=== PATIENT | male | born 1960 | race Caucasian/White ===

== ENCOUNTER → 2023-12-03 | Emergency (ER) | payer BC ==
[~2023-12-03] MED LIST: FLEET ENEMA ADULT PR ONE; NA CHLORIDE 0.9% 1,000 ML ONE
[2023-12-03 13:22] LABS: Absolute Lymphocytes (CBC) 1.4 K/uL (0.7-4.9); Hematocrit 45.1 % (39.6-49.0); Lymphocytes % 14.3 % (15.3-44.8); MCV 87.6 fL (80-100); MPV 7.9 fL (7.6-11.3); Platelets 267 thou/uL (152-406); RBC Red Blood Cell Count 5.15 M/uL (4.33-5.43)
[2023-12-03 13:39] LABS: Albumin 3.5 g/dL (3.4-5.0); Bilirubin Total 1.4 mg/dL (0.2-1.0); Potassium 3.9 mEq/L (3.5-5.1); Protein, Total 8.6 g/dL (6.4-8.2)
--- NOTE | 2023-12-03 14:29 | RAD REPORT ---
EXAM DESCRIPTION: CTAbdomen Pelvis W Contrast - 12/03/2023 2:01 pm CLINICAL HISTORY: ABD PAIN COMPARISON: No comparisons TECHNIQUE: CT of the abdomen and pelvis was performed. All CT scans are performed using dose optimization technique as appropriate and may include automated exposure control or mA/KV adjustment according to patient size. FINDINGS: Lower chest: Bilateral pulmonary nodules consistent with metastatic disease. Liver: Several liver lesions identified, the largest in the inferior aspect of right hepatic lobe pattie suring 2.1 cm. Most are consistent with metastatic disease. Biliary: No biliary ductal dilatation. Stomach: No significant focal abnormality. Duodenum: No significant focal abnormality. Pancreas: Pancreatic atrophy. Spleen: Splenic mass measuring 6.2 cm as well as other smaller splenic lesions that are suspicious fo r metastatic disease. Adrenal: Bilateral adrenal masses which are indeterminate but suspicious for metastatic disease. Kidney/ureter: No hydronephrosis. No renal calculi. Indeterminate low-density lesion in the upper gail e the left kidney measuring 2.2 cm. Other too small to characterize renal lesions noted. Retroperitoneum: No retroperitoneal adenopathy. Vascular: No aneurysm. Bowel: Partial colectomy. No bowel obstruction. No appendicitis . Mild to moderate rectal stool. Stoo l burden is otherwise unremarkable. Peritoneum: No ascites or free air. Bowel containing right lateral ventral hernia. Bladder: Grossly unremarkable. Reproductive: No adnexal masses. Bones: Large mixed bony and soft tissue mass associated with the right hemipelvis which involves the pubic bone, ischium, and iliac bone. There is also involvement of the left pubic bone. Remote rib fra ctures. There is a pathologic fracture of the right superior and inferior pubic rami. There is also a fracture of the right acetabulum and right iliac bone that are also presumably pathologic. Probable pathologic fracture at the left superior and inferior pubic rami. No of the fractures are significant ly displaced. Other: n/a IMPRESSION: Metastatic disease including pulmonary nodules, liver lesions, splenic lesions, adrenal masses, and osseous metastatic disease in this patient with reported history of colon cancer. Several pathologic pelvic bone fractures are identified. The acuity is uncertain in the absence of a more re cent priors. No definite acute findings. Incidental/ancillary findings as noted above.
[2023-12-03 14:57] LABS: Specific Gravity > 1.030 (1.005-1.030); Urine Bacteria None Seen /HPF (<20); Urine Bilirubin NEGATIVE (Negative); Urine Blood Negative (Negative); Urine Clarity Clear (Clear); Urine Color Yellow (Yellow); Urine Glucose NEGATIVE (Negative); Urine Mucus Slight /HPF (None Seen); Urine Protein 1+ (Negative); Urine RBC <5 /HPF (None Seen); Urine Urobilinogen 2+ (Normal); Urine pH 5.5 (5.0-7.0)
--- NOTE | 2023-12-03 16:12 | EDPHYS ---
Physician Documentation [facility] Name: Freddy Howe Age: 63 yrs Sex: Male : 1960 Arrival Date: 12/03/2023 Time: 12:53 Bed 19 Private MD: ED Physician Vineet Uriarte HPI: 12/03 16:23 This 63 yrs old Male presents to ER via EMS with complaints of Urinary Retention. kb 16:23 Pt is a 63 year old male with a history of colon cancer with metastasis who presents kb for lower abdominal pain, constipation and urinary retention. Patient states that he takes morphine for pain at home which causes constipation and then the constipation causes urinary retention. States this happened multiple times in the past. Denies fever, nausea, vomiting. Historical: - Allergies: 13:26 No Known Allergies; bp - Home Meds: 13:27 metoprolol succinate oral [Active]; Zofran Oral [Active]; Morphine Oral [Active]; bp - PMHx: 13:26 Hypertensive disorder; bp - PSHx: 13:26 colon surgery; bp - Immunization history:: Adult Immunizations unknown. - Social history:: Smoking status: Patient denies any tobacco usage or history of. ROS: 16:20 Constitutional: Negative for fever, chills, and weight loss, kb 16:20 Abdomen/GI: Positive for abdominal pain, constipation, 16:20 : Positive for difficulty urinating, 16:20 All other systems are negative, Exam: 16:20 Constitutional: This is a well developed, well nourished patient who is awake, alert, kb and in no acute distress. Head/Face: Normocephalic, atraumatic. ENT: Moist Mucous membranes Cardiovascular: Regular rate Respiratory: Respirations even and unlabored. No increased work of breathing. Talking in full sentences Skin: Warm, dry with normal turgor. Normal color. MS/ Extremity: Pulses equal, no cyanosis. Neurovascular intact. Full, normal range of motion. Neuro: Awake and alert, GCS 15, oriented to person, place, time, and situation. Moves all extremities. Normal gait. 16:20 Abdomen/GI: Inspection: scar(s), Bowel sounds: normal, Palpation: soft, in all quadrants, mild abdominal tenderness, in the suprapubic area and left lower quadrant, Vital Signs: 13:16 BP 122 / 95; Pulse 93; Resp 18; Temp 98.4(O); Pulse Ox 100% on R/A; Weight 137.89 kg; bp Height 6 ft. 2 in. ; Pain 4/10; 14:20 BP 114 / 87; Pulse 89; Resp 16; Pulse Ox 99% on R/A; bp 15:06 BP 118 / 85; Pulse 94; Resp 16; Pulse Ox 97% on R/A; bp 16:55 BP 117 / 79; Pulse 92; Resp 20; Temp 98.3(TE); Pulse Ox 99% on R/A; Pain 2/10; bp 13:16 Body Mass Index 39.03 (137.89 kg, 187.96 cm) bp 13:16 Pain Scale: Adult bp 16:55 Pain Scale: Adult bp MDM: 13:00 Patient medically screened. kb 14:38 ED course: 400ml urine drained after mays placed. Pt requests mays be removed at this kb time because it is uncomfortable. States he normally gets retention due to constipation. . 14:39 ED course: Discussed diagnostics results with pt and printed copy given. Pt states he kb knew about the metastasis and will speak to his oncologist at follow-up.. 16:21 Differential diagnosis: bowel obstruction, non-specific abd pain, pancreatitis, urinary kb tract infection. Data reviewed: vital signs, nurses notes. Historians other than the Patient: EMS: [facility]. Counseling: I had a detailed discussion with the patient and/or guardian regarding the historical points, exam findings, and any diagnostic results supporting the discharge/admit diagnosis, lab results, radiology results, the need for outpatient follow up, a family practitioner, to return to the emergency department if symptoms worsen or persist or if there are any questions or concerns that arise at home. ED course: Pt was able to have a BM after enema. Pt will follow up with oncologist . 12/03 13:00 Order name: CBC with Diff; Complete Time: 13:33 kb 12/03 13:00 Order name: CMP; Complete Time: 13:39 kb 12/03 13:00 Order name: Lipase; Complete Time: 13:39 kb 12/03 13:00 Order name: Urinalysis w/ reflexes; Complete Time: 15:08 kb 12/03 13:00 Order name: CT Abd/Pelvis - IV Contrast Only; Complete Time: 14:33 kb 12/03 13:00 Order name: IV Saline Lock; Complete Time: 13:15 kb 12/03 13:00 Order name: Labs collected and sent; Complete Time: 13:15 kb 12/03 13:00 Order name: Bladder Scanner: pvr; Complete Time: 14:19 kb 12/03 14:25 Order name: Mays; Complete Time: 14:44 kb Administered Medications: 13:53 Drug: NS 0.9% IV 1000 ml IV at 1 bolus Per protocol; 1000 mL bolus Route: IV; Rate: 1 bp bolus; Site: right antecubital; 16:55 Follow up: Response: No adverse reaction; IV Status: Completed infusion; IV Intake: bp 1000ml 15:28 Drug: Fleet Enema MA 133 ml MA once; may repeat once Route: MA; bp 16:54 Follow up: Response: Other; Pt had moderate bowel movement bp Disposition: 17:27 Co-signature as Attending Physician, Vineet Uriarte MD I reviewed the patient's care rt provided by the Advanced Practice Provider and agree with the diagnosis and treatment plan. Disposition Summary: 12/03/23 16:12 Discharge Ordered Notes: Location: Home kb Condition: Stable kb Diagnosis - Constipation kb Followup: kb - With: Emergency Department - When: As needed - Reason: Worsening of condition Followup: kb - With: Private Physician - When: 2 - 3 days - Reason: Recheck today's complaints, Continuance of care, Re-evaluation by your physician Discharge Instructions: - Discharge Summary Sheet kb - Constipation, Adult, [id number] kb Forms: - Medication Reconciliation Form kb - Thank You Letter kb - Antibiotic Education kb - Prescription Opioid Use kb - Patient Portal Instructions kb - Leadership Thank You Letter kb Signatures: Dispatcher [employer] Poonam Anderson, ELIZABETH FERRELL-Papo Toney, RN RN Vineet Acosta MD MD rt
--- NOTE | 2023-12-03 16:12 | ER ---
Nurse's Notes [facility] Name: Freddy Howe Age: 63 yrs Sex: Male : 1960 Arrival Date: 12/03/2023 Time: 12:53 Bed 19 Private MD: Diagnosis: Constipation Presentation: 12/03 13:16 Chief complaint: Patient states: Pt c/o progressively worsening diffuse abdominal pain bp since . 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 Coronavirus screen: At this time, the client does not indicate any symptoms associated with coronavirus-19. Ebola Screen: No symptoms or risks identified at this time. Initial Sepsis Screen: Does the patient meet any 2 criteria? No. Patient's initial sepsis screen is negative. Does the patient have a suspected source of infection? No. Patient's initial sepsis screen is negative. Risk Assessment: Do you want to hurt yourself or someone else? Patient reports no desire to harm self or others. Onset of symptoms was November 30, 2023. 13:16 Method Of Arrival: EMS: [facility] bp 13:16 Acuity: MARIAH 3 bp Triage Assessment: 13:30 General: Appears distressed, uncomfortable, Behavior is calm, cooperative. Pain: bp Complains of pain in abdomen. EENT: No deficits noted. No signs and/or symptoms were reported regarding the EENT system. Neuro: No deficits noted. Denies blurred vision dizziness, numbness headache. Cardiovascular: No deficits noted. Denies chest pain, diaphoresis, palpitations. Respiratory: Reports shortness of breath Breath sounds are clear bilaterally. GI: No deficits noted. No signs and/or symptoms were reported involving the gastrointestinal system. : Reports inability to void. Musculoskeletal: No deficits noted. No signs and/or symptoms reported regarding the musculoskeletal system. Historical: - Allergies: 13:26 No Known Allergies; bp - Home Meds: 13:27 metoprolol succinate oral [Active]; Zofran Oral [Active]; Morphine Oral [Active]; bp - PMHx: 13:26 Hypertensive disorder; bp - PSHx: 13:26 colon surgery; bp - Immunization history:: Adult Immunizations unknown. - Social history:: Smoking status: Patient denies any tobacco usage or history of. Screenin:43 [facility] ED Fall Risk Assessment (Adult) History of falling in the last 3 months, bp including since admission No falls in past 3 months (0 pts) Confusion or Disorientation No (0 pts) Intoxicated or Sedated No (0 pts) Impaired Gait No (0 pts) Mobility Assist Device Used No (0 pt) Altered Elimination No (0 pt) Score/Fall Risk Level 0 - 2 = Low Risk Oriented to surroundings, Maintained a safe environment, Educated pt \T\ family on fall prevention, incl call for assistance when getting out of bed, Assessed \T\ reinforced patient's understanding of fall precautions, Provided non-skid footwear, Hourly rounding (assess needs \T\ fall precautionary measures) done, Used ambulatory aids as needed (educated on \T\ assisted with), Used gait belt as appropriate. Abuse screen: Denies threats or abuse. Denies injuries from another. Nutritional screening: No deficits noted. Tuberculosis screening: No symptoms or risk factors identified. Assessment: 14:19 Reassessment: Patient and/or family updated on plan of care and expected duration. Pain bp level reassessed. Patient is alert, oriented x 3, equal unlabored respirations, skin warm/dry/pink. Bladder scanner completed. Pt has 357 mL urine. Provider aware. 15:05 Reassessment: Pt assisted to bedside commode. Pt states he feels like he can have a bp bowel movement without the enema. Will continue to monitor. 16:40 Reassessment: Pt administered 2nd fleets enema with moderate results. Pt states he bp feels better. Vital Signs: 13:16 BP 122 / 95; Pulse 93; Resp 18; Temp 98.4(O); Pulse Ox 100% on R/A; Weight 137.89 kg; bp Height 6 ft. 2 in. ; Pain 4/10; 14:20 BP 114 / 87; Pulse 89; Resp 16; Pulse Ox 99% on R/A; bp 15:06 BP 118 / 85; Pulse 94; Resp 16; Pulse Ox 97% on R/A; bp 16:55 BP 117 / 79; Pulse 92; Resp 20; Temp 98.3(TE); Pulse Ox 99% on R/A; Pain 2/10; bp 13:16 Body Mass Index 39.03 (137.89 kg, 187.96 cm) bp 13:16 Pain Scale: Adult bp 16:55 Pain Scale: Adult bp ED Course: 12:59 Patient arrived in ED. eb 13:00 Poonam Garcia [facility]-C [facility]. kb 13:00 Vineet Uriarte MD is Attending Physician. kb 13:15 Papo Olivia, ALICJA is Primary Nurse. bp 13:16 CMP Sent. bp 13:16 CBC with Diff Sent. bp 13:16 Urinalysis w/ reflexes Sent. bp 13:18 Inserted saline lock: 22 gauge in right forearm, using aseptic technique. Blood ds4 collected. 13:26 Triage completed. bp 13:30 Arm band placed on Patient placed in an exam room, on a stretcher. bp 13:43 Patient has correct armband on for positive identification. Placed in gown. Bed in low bp position. Call light in reach. Side rails up X2. Adult w/ patient. Provided Education on: ed process. Client placed on continuous cardiac and pulse oximetry monitoring. NIBP monitoring applied. Door closed. Lights dimmed. Moved to private room. Warm blanket given. 14:03 CT Abd/Pelvis - IV Contrast Only In Process Unspecified. EDMS 14:23 No provider procedures requiring assistance completed. bp 14:45 Quan cath inserted, using sterile technique, 16 Fr., by me, balloon inflated, to bp gravity drainage, urine specimen collected. 15:01 Quan cath removed intact, balloon deflated. bp 16:40 IV discontinued, intact, bleeding controlled, No redness/swelling at site. Pressure bp dressing applied. Administered Medications: 13:53 Drug: NS 0.9% IV 1000 ml IV at 1 bolus Per protocol; 1000 mL bolus Route: IV; Rate: 1 bp bolus; Site: right antecubital; 16:55 Follow up: Response: No adverse reaction; IV Status: Completed infusion; IV Intake: bp 1000ml 15:28 Drug: Fleet Enema MD 133 ml MD once; may repeat once Route: MD; bp 16:54 Follow up: Response: Other; Pt had moderate bowel movement bp Medication: 13:42 VIS not applicable for this client. bp Intake: 16:55 IV: 1000ml; Total: 1000ml. bp Outcome: 16:12 Discharge ordered by . kb 16:53 Discharged to home via wheelchair, with crutches, with family, bp 16:53 Condition: stable 16:53 Discharge instructions given to patient, family, Instructed on discharge instructions, follow up and referral plans. medication usage, Demonstrated understanding of instructions, follow-up care, medications, 16:56 Patient left the ED. bp Signatures: Dispatcher [employer] EDMS Poonam Garcia, SPICE FUMIGATOR-C SPICE FUMIGATOR-Cynthia Banks [place] ds4 Papo Olivia, RN RN Natalie Bentley Corrections: (The following items were deleted from the chart) 13:42 13:16 Chief complaint: Patient states: Pt c/o progressively worsening diffuse abdominal bp pain since . Pt states he has chronic constipation due to Morphine use to control pain in hips. bp
[2023-12-03 17:17] VITALS: BP 117/79; TEMP 98.3; O2SAT 99
== END ==
LOC: ER 12:53
DX: K59.00 Constipation, unspecified (principal); R33.9 Retention of urine, unspecified; Z85.038 Personal history of other malignant neoplasm of large intestine
CPT/HCPCS: 36415; 74177; 80053; 81001; 83690; 85025; J7030; Q9967